=== PATIENT | male | born 1990 | race Caucasian/White ===

== ENCOUNTER 2017-04-23 18:25 | Emergency (ER) | payer OTHER ==
[~2017-04-23] VITALS: Ht 177.8 cm; Wt 75.0 kg
[2017-04-23] MEDS ORDERED: PERCOCET 5/325M1 TAB PO (19:35)
[2017-04-23] MEDS ORDERED: ORPHENADRINE100 MG PO (19:35)
[2017-04-23 20:38] VITALS: BP 136/72
== END 2017-04-23 20:38 | disposition home or self-care (01) | DRG 552 ==
LOC: ED 18:25
DX: S13.9XXA Sprain of joints and ligaments of unspecified parts of neck, initial encounter (principal); V49.49XA Driver injured in collision with other motor vehicles in traffic accident, initial encounter